=== PATIENT | female | born 1980 | race Caucasian/White ===

== ENCOUNTER 2018-12-07 19:42 | Emergency (ER) | payer OTHER ==
[~2018-12-07] VITALS: Ht 165.1 cm; Wt 81.7 kg
[2018-12-07] MEDS ORDERED: CEPHALEXIN500 MG PO (22:55)
== END 2018-12-07 23:08 | disposition home or self-care (01) ==
LOC: ED 19:42
DX: O20.0 Threatened abortion (principal); Z88.1 Allergy status to other antibiotic agents
CPT/HCPCS: 36415; 80053; 81001; 83690; 84702; 84703; 85025; 99284

== ENCOUNTER 2020-02-06 12:42 | Emergency (ER) | payer OTHER ==
[~2020-02-06] VITALS: Ht 165.1 cm; Wt 86.2 kg
[~2020-02-06 12:42] MED LIST: CEPHALEXIN500 MG PO
--- NOTE | 2020-02-06 14:06 | EKG ---
[facility] [address] [place], [place] [address] Signed Sinus rhythm with short CO Otherwise normal ECG No previous ECGs available Confirmed by NESS KEARNS MD ([id number]) on 02/06/2020 2:05:55 PM Electronically Signed By: NESS KEARNS MD 02/06/20 1406 PATIENT NAME: RICO DASILVA Electrocardiogram DATE OF : 80 PHYSICIAN: NESS KEARNS MD REPORT #: [id number] REPORT IS CONFIDENTIAL AND NOT TO BE RELEASED WITHOUT AUTHORIZATION
== END 2020-02-06 14:52 | disposition home or self-care (01) ==
LOC: ED 12:42
DX: R09.1 Pleurisy (principal); F32.9 Major depressive disorder, single episode, unspecified; Z88.1 Allergy status to other antibiotic agents
CPT/HCPCS: 71045; 80053; 83735; 84484; 84703; 85025; 93005; 93010; 99285-25

== ENCOUNTER 2020-10-31 08:20 | Emergency (ER) | payer OTHER ==
[~2020-10-31] VITALS: Ht 165.1 cm; Wt 79.4 kg
== END 2020-10-31 09:26 | disposition home or self-care (01) ==
LOC: ED 08:20
DX: U07.1 COVID-19 (principal); Z88.1 Allergy status to other antibiotic agents
CPT/HCPCS: 99283; U0003

== ENCOUNTER 2021-06-14 07:26 | Emergency (ER) | payer OTHER ==
[~2021-06-14] VITALS: Ht 165.1 cm; Wt 79.4 kg
--- OUTSIDE RECORDS SUMMARY | 2021-06-14 07:30 | XMS ---
PreManage Notification: RICO DASILVA [employer] Events No recent Security Events currently on file CRITERIA MET - ED - Positive COVID-19 Lab Result - [facility] PROVIDERS There are no care providers on record at this time. [facility] has no Care Guidelines for this patient. Sandhya VISIT COUNT (12 MO.) 2 RUKHSANA Red TOTAL 2 NOTE: Visits indicate total known visits. ED/UCC VISIT TRACKING (12 MO.) 06/14/2021 07:27 [facility] TYPE: Emergency COMPLAINT: - SHOULDER PAIN 10/31/2020 08:21 [facility] TYPE: Emergency COMPLAINT: - EXTREME FATIGUE, COUGH DIAGNOSES: - COVID-19 - Allergy status to other antibiotic agents - Acute pharyngitis, unspecified INPATIENT VISIT TRACKING (12 MO.) No inpatient visits to display in this time frame [email or web address]
[2021-06-14] MEDS ORDERED: NAPROSYN500 MG PO (07:44)
== END 2021-06-14 08:15 | disposition home or self-care (01) ==
LOC: ED 07:26
DX: S46.912A Strain of unspecified muscle, fascia and tendon at shoulder and upper arm level, left arm, initial encounter (principal); Z88.8 Allergy status to other drugs, medicaments and biological substances; X50.0XXA Overexertion from strenuous movement or load, initial encounter
CPT/HCPCS: 73030; 99283-25; A9270

== ENCOUNTER 2023-01-27 20:38 | Emergency (ER) | payer BC, OTHER ==
[~2023-01-27] VITALS: Ht 167.6 cm; Wt 100.0 kg
[~2023-01-27 20:38] MED LIST changes: +NAPROSYN500 MG PO
[2023-01-27 21:08] LABS: BILIRUBIN, URINE NEGATIVE (negative); BLOOD/HGB, URINE TRACE-I (Negative); KETONE, URINE NEGATIVE (Negative); LEUK ESTERASE, URINE MODERATE (negative); NITRITE, URINE POSITIVE (negative)
[2023-01-27 21:08] LABS: BASOPHILS 0.8 % (0-2); EOSINOPHILS 7.7 % (0-6); HEMATOCRIT 41.2 % (35.0-50.0); HEMOGLOBIN 13.5 g/dL (12.0-18.0); MCH 28.2 (27-36); MCHC 32.9 g/dl (30-36); MCV 85.7 fl (81-99); MONOCYTES 8.6 % (0-12); NEUTROPHILS 45.9 % (39-80); PLATELET COUNT 357 K/uL (140-440); RDW 14.8 (10.5-15.0)
[2023-01-27 21:13] LABS: EPITHELIAL CELLS, URINE SQUAMOUS 1+ /lpf (0-1+)
[2023-01-27 21:14] LABS: BACTERIA, URINE 4+ /hpf (negative); CASTS, URINE NONE SEEN \\lpf; CRYSTALS, URINE NONE SEEN (0-1+); RED BLOOD CELLS, URINE 0-1 /hpf (0-5); REFLEX CULTURE, URINE Yes (No); WHITE BLOOD CELLS, URINE >50 /HPF (0-5)
[2023-01-27 21:22] LABS: ALBUMIN 3.4 g/dL (3.4-5.0); ALBUMIN/GLOBULIN RATIO 0.92 (1.1-2.4); ANION GAP 11.6 (7-21); BILIRUBIN, TOTAL 0.3 ng/dL (0.2-1.0); BUN/CREATININE RATIO 9.41 (6.0-28.6); CALCIUM 8.7 mg/dL (8.5-10.1); CREATININE, SERUM 0.85 mg/dL (0.55-1.02); POTASSIUM 3.6 mmol/L (3.5-5.1); PROTEIN, TOTAL 7.1 g/dL (6.4-8.2)
[2023-01-27] MEDS ORDERED: MACROBID 100 M100 MG PO (22:06)
[2023-01-27] MEDS ORDERED: OMEPRAZOLE20 MG PO (22:06)
[2023-01-27 22:20] VITALS: BP 112/87
--- NOTE | 2023-01-28 11:55 | EKG ---
[facility] [address] [place], [place] [address] Signed Normal sinus rhythm Normal ECG When compared with ECG of 06-FEB-2020 12:51, No significant change was found Confirmed by CHERYL GONZALEZ MD ([id number] on 01/28/2023 11:55:40 AM Electronically Signed By: CHERYL GONZALEZ 01/28/23 1155 PATIENT NAME: RICO DASILVA Electrocardiogram DATE OF : 80 PHYSICIAN: CHERYL GONZALEZ REPORT #: [id number] REPORT IS CONFIDENTIAL AND NOT TO BE RELEASED WITHOUT AUTHORIZATION
== END 2023-01-27 22:21 | disposition home or self-care (01) ==
LOC: ED 20:38
PROVIDERS: Internal Medicine
DX: K44.9 Diaphragmatic hernia without obstruction or gangrene (principal); K21.9 Gastro-esophageal reflux disease without esophagitis; N39.0 Urinary tract infection, site not specified; Z88.1 Allergy status to other antibiotic agents
CPT/HCPCS: 36415; 80053; 81001; 84703; 85025; 93005; 93010; C9113; J2405; J7121

== ENCOUNTER 2023-03-21 00:56 | Emergency (ER) | payer BC, OTHER ==
[~2023-03-21] VITALS: Ht 167.6 cm; Wt 94.6 kg
[~2023-03-21 00:56] MED LIST changes: +MACROBID 100 M100 MG PO; +OMEPRAZOLE20 MG PO
[2023-03-21 01:15] LABS: BASOPHILS 0.6 % (0-2); EOSINOPHILS 1.7 % (0-6); HEMOGLOBIN 13.7 g/dL (12.0-18.0); LYMPHOCYTES 38.3 % (24-44); MCH 27.7 (27-36); MCHC 32.7 g/dl (30-36); MCV 84.6 fl (81-99); MONOCYTES 7.7 % (0-12); NEUTROPHILS 51.7 % (39-80); PLATELET COUNT 370 K/uL (140-440); RBC 4.97 M/ul (4.3-5.7); RDW 14.2 (10.5-15.0)
[2023-03-21 01:30] LABS: ALBUMIN 3.7 g/dL (3.4-5.0); ALBUMIN/GLOBULIN RATIO 0.95 (1.1-2.4); ANION GAP 12.6 (7-21); BILIRUBIN, TOTAL 0.4 ng/dL (0.2-1.0); BUN/CREATININE RATIO 11.11 (6.0-28.6); CALCIUM 8.7 mg/dL (8.5-10.1); CREATININE, SERUM 0.9 mg/dL (0.55-1.02); POTASSIUM 3.6 mmol/L (3.5-5.1); PROTEIN, TOTAL 7.6 g/dL (6.4-8.2)
[2023-03-21 02:14] LABS: BILIRUBIN, URINE NEGATIVE (negative); BLOOD/HGB, URINE TRACE-I (Negative); KETONE, URINE SMALL (Negative); LEUK ESTERASE, URINE NEGATIVE (negative); NITRITE, URINE NEGATIVE (negative)
[2023-03-21] MEDS ORDERED: ONDANSETRON ODT8 MG PO (03:03)
[2023-03-21 03:15] VITALS: BP 150/97
== END 2023-03-21 03:15 | disposition home or self-care (01) ==
LOC: ED 00:56
PROVIDERS: Family Medicine
DX: R10.13 Epigastric pain (principal); R11.10 Vomiting, unspecified; Z88.1 Allergy status to other antibiotic agents; Z79.899 Other long term (current) drug therapy
CPT/HCPCS: 36415; 80053; 81003; 83690; 85025; A9270; J1790; J1885; J2405; J7030